=== PATIENT | male | born 1975 | race Two or more races ===

== ENCOUNTER → 2018-01-20 | Emergency (ER) | payer SELFPAY ==
[~2018-01-20] VITALS: Ht 172.7 cm; Wt 77.1 kg
[~2018-01-20] MED LIST: IV NORMAL SALINE 1000 ML BAG IV ONE
--- NOTE | 2018-01-20 18:29 | NUR ---
saline bolus infusing, lab drawing blood.
[2018-01-20 18:39] LABS: BASOPHILS # (AUTO) 0.1 K/uL (0.0-8.0); BASOPHILS % (AUTO) 1.5 % (0.0-2.0); EOSINOPHILS # (AUTO) 0.2 K/uL (0.0-0.7); EOSINOPHILS % (AUTO) 4.1 % (0.0-7.0); HEMATOCRIT 44.4 % (36.7-47.1); HEMOGLOBIN 14.8 g/dL (12.5-16.3); LYMPHOCYTES # (AUTO) 2.1 K/uL (20.0-40.0); LYMPHOCYTES % (AUTO) 35.9 % (20.5-51.5); MEAN CORPUSCULAR HEMOGLOBIN 30.6 uug (23.8-33.4); MEAN CORPUSCULAR HGB CONC 33 g/dL (32.5-36.3); MEAN CORPUSCULAR VOLUME 91.9 fL (73.0-96.2); MONOCYTES # (AUTO) 0.6 K/uL (2.0-10.0); MONOCYTES % (AUTO) 9.8 % (0.0-11.0); NEUTROPHILS # (AUTO) 2.9 K/uL (1.8-8.9); NEUTROPHILS % (AUTO) 48.7 % (38.5-71.5); PLATELET COUNT (AUTO) 236 K/uL (152-348); RED BLOOD CELL COUNT(AUTO) 4.83 MIL/uL (4.06-5.63); WHITE BLOOD COUNT (AUTO) 5.9 K/uL (3.6-10.2)
[2018-01-20 18:48] LABS: CARBON DIOXIDE 26 mmol/L (21-32); CHLORIDE 106 mmol/L (98-107); CREATININE 0.8 mg/dL (0.6-1.3); GLUCOSE 103 mg/dL (74-106); POTASSIUM 3.2 mmol/L (3.5-5.1); UREA NITROGEN, BLOOD 7 mg/dL (7-18)
[2018-01-20 18:54] LABS: ACETAMINOPHEN < 2.0 ug/mL (10-30); ALANINE AMINOTRANSFERASE 34 U/L (16-63); ALKALINE PHOSPHATASE 104 U/L (50-136); ASPARTATE AMINOTRANSFERASE 61 U/L (15-37); BILIRUBIN,DIRECT 0.1 mg/dL (0.0-0.2); BILIRUBIN,TOTAL 0.5 mg/dL (0.2-1.0); ETHANOL 390 MG/DL (0-0); TOTAL PROTEIN, SERUM 8.5 g/dL (6.4-8.2)
[2018-01-20 19:02] LABS: THYROID STIMULATING HORMONE 0.567 mIU/mL (0.358-3.740)
--- NOTE | 2018-01-20 19:07 | NUR ---
sbar report to pm shift. pt sleeping
--- NOTE | 2018-01-20 19:15 | NUR ---
Rec'd pt in bed in no distress, asleep but arousable, IV fluis infusing as ordered
--- NOTE | 2018-01-20 20:51 | NUR ---
ptaao X$, ambulatory in in astedy gait,deniesdizziness, lightheadness, pt advised to f/u with pmd or return to ER for worsening of symptoms,verbalizes understanding. Addendum: 01/20/18 at 2054 by FARHAN correction:[email or web address]
[2018-01-20 20:58] VITALS: BP 156/78
== END | disposition home or self-care (01) ==
LOC: ER 18:13
DX: F10.129 Alcohol abuse with intoxication, unspecified (principal)
CPT/HCPCS: 36415; 70030-TC; 70450; 71045; 84443; 85025; 85730; 93005; A4663; G0480; G0480-TC; J7030